=== PATIENT | female | born 1990 | race Two or more races ===

== ENCOUNTER 2022-06-11 15:28 | Emergency (ER) | payer OTHER ==
[~2022-06-11] VITALS: Ht 172.7 cm; Wt 100.0 kg
[2022-06-11 19:04] LABS: HCG SCREEN NEGATIVE
[2022-06-11 19:05] LABS: BASOPHILS % 0.6 % (0.0-2.0); CHLORIDE 108 mEq/L (98-107); EOSINOPHILS % 1.1 % (0.0-5.0); HEMOGLOBIN. 12.5 g/dL (12.0-16.0); LYMPHOCYTES % 23.8 % (20.0-50.0); MEAN CORPUSCULAR HEMOGLOBIN 27.9 pg (28.0-32.0); MEAN CORPUSCULAR VOLUME 82.8 fL (81.0-99.0); MEAN PLATELET VOLUME 6.8 fl (7.4-10.4); MONOCYTES % 4.1 % (2.0-8.0); NEUTROPHILS % 70.4 % (40.0-76.0); PLATELET 295 x1000/uL (130-400); RED BLOOD CELL COUNT 4.47 mill/uL (4.2-5.4); RED CELL DISTRIBUTION WIDTH 14.9 % (11.6-14.6)
[2022-06-11 19:08] LABS: PARTIAL THROMBOPLASTIN TIME 28.2 sec (23.4-31.0); PROTHROMBIN TIME 10.6 sec (9.6-11.0)
[2022-06-11 19:17] LABS: ETHANOL BLOOD < 10 mg/dL
[2022-06-11] MEDS ORDERED: ASPIRIN 81MG TABLET PO ONE (20:00)
[2022-06-11 23:24] VITALS: BP 111/69
== END 2022-06-11 23:26 | disposition short-term general hospital (02) ==
LOC: ER 15:28 → CANBEDREQ 06-12 13:18
DX: R51.9 Headache, unspecified (principal); G45.9 Transient cerebral ischemic attack, unspecified; Z20.822 Contact with and (suspected) exposure to COVID-19
CPT/HCPCS: 36415; 70450; 71045; 80053; 80320; 83880; 84484; 84703; 85025; 85610; 85730; 87426; 93005; 99285; C9803; Z7610; G0480